=== PATIENT | male | born 1990 | race Caucasian/White ===

== ENCOUNTER 2022-11-22 08:48 | Day surgery (SDC) | payer MEDICAID, SELFPAY ==
[2022-11-22] VITALS (13 sets, daily range): BP systolic 127–142; BP diastolic 66–93; PULSE 84–118; RESP 15–20; TEMP 36.6–37.2; O2SAT 95–100; BMI 19.4
[2022-11-22] MEDS: LACTATED RINGERS 1000 ML 1,000 ML 100 ML IV (09:25)
[2022-11-22] MEDS: SODIUM CHLORIDE 0.9 % (FLUSH) 10 ML SYRINGE IVF (09:25)
[2022-11-22 09:32] LABS: SARS Antigen* negative (Negative)
--- NOTE | 2022-11-22 09:51 | PM.GSCN ---
History of Present Illness Consult details Date Seen: 11/22/22 Consult date: 11/22/22 Narrative: 32-year-old male was referred to surgery by Dr. Sepulveda for evaluation of acute appendicitis. Patient states that last Friday or Friday he developed periumbilical pain that later became suprapubic. Patient had intermittent episodes of this pain and on Friday the pain came back and was constant. The pain was suprapubic and was described as ?like I needed to have a bowel movement?. The pain was better with resting and sometimes better with walking around. Patient was passing gas. His last bowel movement was 2 days ago. He denies any nausea or vomiting. He denies any fevers. Patient had episodes of pubic pain for years. He usually describes the pain as dull and located at the base of the penis. Patient was diagnosed with pelvic floor dysfunction but thinks that this pain is different from his previous painful episodes. Patient was seen in [facility] and was found to have a normal WBC and normal liver function tests. Those were personally reviewed by me at [facility]. Patient also had an abdominal CT that I reviewed in [facility] and that showed dilated appendix with appendicoliths with no significant periappendiceal inflammation. This was concerning for an early appendicitis. Patient was placed on antibiotics and a GI follow-up was recommended. Patient was then seen by Dr. Sepulveda from Gastroenterology yesterday. Patient's pain was getting better with antibiotics. Dr. Sepulveda then consulted surgery for evaluation for appendectomy. Review of Systems Narrative: General: no fevers HENT: no problems swallowing CV: no shortness of breath Resp: no cough GI: see above Skin: no new rashes Musculoskeletal: no back pain Neuro: no muscle weakness PFSH PFS Medical History (Updated 11/22/22 @ 09:57 by Cony Mukherjee MD) Chronic appendicitis Social History (Updated 11/22/22 @ 09:57 by Cony Mukherjee MD) Narrative: Patient denies smoking and drinking alcohol. He works at [employer] and occasionally does heavy lifting. Smoking Status: Never smoker How often do you have a drink containing alcohol: never AUDIT-C Alcohol total score: 0 Non-prescribed substance use: denies use Caffeine: No Meds Home Medications and Allergies Home Medications Medication Instructions Recorded Confirmed Type amoxicillin 875 mg-potassium 1 tab PO BID 11/21/22 11/22/22 History clavulanate 125 mg tablet Allergies Allergy/AdvReac Type Severity Reaction Status Date / Time ibuprofen AdvReac Edema Verified 11/22/22 09:26 Exam Narrative: Exam Narrative: General appearance: Alert, cooperative, and in no distress Pulmonary: Chest symmetric, lungs clear bilaterally Cardiovascular Heart: Regular rate and rhythm, S1, S2, no murmurs/rubs/gallops Gastrointestinal Abdominal: soft, not distended, minimal tenderness to deep palpation suprapubically with no peritoneal signs Skin: Normal skin color, texture, and turgor. No rashes or lesions. Psychiatric: Alert, cooperative, normal affect. Const: Vital Signs, click to edit/add: Vital Signs - 24 hr 11/22/22 09:30 Temperature 97.9 F Pulse Rate 118 H Respiratory Rate 16 Blood Pressure 142/89 H Pulse Oximetry 98 Oxygen Delivery Me thod Room Air Results Labs Labs: All other labs normal. Assessment and Plan Assessment and plan (1) Chronic appendicitis: Status: Acute Plan 32-year-old male presents with abdominal pain and dilated appendix concerning for acute on chronic appendicitis. I discussed with the patient and his mother his laboratory and CT findings. Patient's symptoms are atypical for acute appendicitis. However his CT scan shows dilated appendix with appendicoliths, and I wonder if his intermittent episodes of pain could be related to chronic appendicitis. I also discussed with the patient and his mother that there is a possibility that he has Meckel's diverticulum that is causing his symptoms. I recommended to proceed with laparoscopic appendectomy. We also discussed the exploration of the terminal ileum looking for Meckel's diverticulum. If patient does have inflamed Meckel diverticulitis, I recommended to proceed with excision that could possibly contain primary anastomosis. I did discuss with the patient that if his surgery is more involved, he will need to stay in the hospital for few days. The risks of procedure including infection, bleeding, injury to intra-abdominal organs, and continued chronic pain were all discussed with the patient and his mother, and the patient agreed to proceed.
--- NOTE | 2022-11-22 11:01 | P.NB_ITS ---
Nerve Block Nerve Block Time Seen by Provider: 10:40 Date Seen: 11/22/22 Type of block requested by surgeon for post-operative analgesia: TAP Side: bilateral Time out performed: Yes Verification of patient name: Yes Verification of date of : Yes Site marking: site marked Name of person performing procedure: Elia Hernandez Continuous monitoring Was continuous monitoring of O2 sat, B/P, vehicle monitor technician, recorded every 15 minutes?: Yes Procedure Checklist: sterile prep, needles and gloves Ultrasound guided. Images saved: Yes Medications given in 5ml increments after negative aspiration: Marcaine %: 0.25 mL: 30 Needle gauge: 20 and Exparel mL: 10 Needle gauge: 20 Patient tolerated procedure well: Yes Additional comments: Injected in 5ml increments after negative aspiration Block Charges Block Charge (with Pro Fee): TAP Bilateral Use of Ultrasound Machine for Block: Yes- US Guidance/pain block
[2022-11-22] MEDS: BUPIVACAINE 0.25% 30 ML INJECTION (12:07)
--- NOTE | 2022-11-22 12:27 | W.ANESCHARGE ---
Anesthesia Charges Start Date/Time Anesthesia Start Date: 11/22/22 Anesthesia Start Time: 10:34 Stop Date/Time Anesthesia Stop Date: 11/22/22 Anesthesia Stop Time: 12:27
[2022-11-22] MEDS: fentaNYL 100 MCG/2 ML inj 50 MCG IVP ×2 (12:33→12:47)
--- NOTE | 2022-11-22 12:58 | P.GSOP_ITS ---
Operative Note Date of procedure: 11/22/22 Pre-op diagnosis: 1. Acute on chronic appendicitis. Post-op diagnosis: Same Type of Procedure: 1. Laparoscopic appendectomy. Indications: 32-year-old male was referred to surgery clinic with intermittent episodes of abdominal pain. The last episode started several days ago and was initially intermittent but then the pain became constant. The pain was periumbilical and then located in the suprapubic area. Patient denies any fevers. He was passing gas and had bowel movements. Because the pain was persistent, patient was seen in his clinic. He was found to have a normal WBC. An abdominal CT was obtained that showed a dilated appendix with appendicoliths with no significant periappendiceal inflammation. This was suspicious for early appendicitis. Patient was recommended to take p.o. antibiotics and was referred to Gastroenterology. When seen in clinic by Gastroenterology, surgery was then involved. On clinical exam patient had minimal discomfort to palpation suprapubically with no peritoneal signs. Given patient's clinical history and his CT findings, acute on chronic appendicitis was suspected. I recommended to proceed with laparoscopic appendectomy. The procedure was discussed in detail. The risks associated procedure including infection, bleeding, and injury to intra-abdominal organs, were all discussed with the patient, and he agreed to proceed. Procedure Description: After discussing the risks and benefits of the procedure, the patient signed informed consent.? The operative site was marked and the patient was brought to the operating room and placed on the operating table in supine position.? Care was taken to pad the patient's pressure points.?? The patient was then intubated by anesthesia. Transabdominal block was administered by Anesthesia bilaterally.?? The operative site was then prepped and draped in the usual sterile fashion.? A time-out was then performed. A 5-mm laparoscopy port was placed in the left upper quadrant guided by a 5-mm laparoscope placed into a translucent trochar. Passage through the layers of th e abdominal wall was visualized with the laparoscope. A pneumoperitoneum was established. A 30-degree 5-mm laparoscope was advanced into the abdomen. The abdomen was briefly surveyed, and there was no evidence of diffuse peritonitis. A 12-mm port and a 5-mm port were placed in the left low quadrant and suprapubically, respectively, under direct visualization by laparoscope. Left upper quadrant entrance port was then examined intraabdominally by placing the camera through the left lower quadrant port and no intraabdominal injury was seen. The patient was placed in Trendelenburg position, allowing the abdominal contents to shift cephalad. The small bowel was moved toward the midline in the abdomen and this allowed for identification of the appendix. The proximal half of the appendix appeared hyperemic but there was no evidence of acute inflammation. The distal half of the appendix appeared slightly dilated. Initially, It was difficult to tell where the base of the appendix was and where the appendiceal mesentery was. The proximal half of the appendix appeared to be wrapped in peritoneum and adherent to the pelvic sidewall. I then proceeded with dissecting the appendix from the abdominal wall and from the cecum. The cecum was redundant and also covered by redundant peritoneum. This dissection was done with Harmonic scalpel and bluntly. Multiple small blood vessels were noted to go into the appendix posteriorly adjacent to the cecal mesentery. Those small blood vessels were skeletonized and clipped with 5 mm clips and then divided with scissors. The peritoneum overlying the proximal half of the appendix was thickened and difficult to mobilize. The terminal ileum going into the cecum was visualized and frequent checks were done to avoid injury to the small intestine. Because the anatomy was atypical, I elected to look for a right ureter, which was identified deep in the retroperitoneum diving into the pelvis. Our dissection was away from the ureter. Just grasping the appendix was tearing into the appendiceal wall and the appendix was fracturing. There was no purulence or stool contents spilling from the appendix. When the appendiceal base was identified and skeletonized, a vascular load Endo-RUBEN stapler was advanced through the 12-mm port into the abdomen and appendix was stapled off at its base. The appendix was then placed in an endoscopic r etrieval bag and extracted from the abdomen through the 12-mm port. The abdomen was surveyed for hemostasis. Mild bleeding was noted from the staple line and that was controlled with a single 5 mm clip. I then ran the terminal ileum laparoscopic and no Meckel's diverticulum was identified. There was no evidence of creeping fat in the terminal ileum. The 12-mm port was withdrawn and the fascial defect was closed with 0-0 Vicryl stitch. This closure site was examined from the abdomen, and no intra-abdominal structures were incarcerated in the closure. The 5-mm port was removed under direct visualization. The left upper quadrant port was used to evacuate the pneumoperitoneum and then withdrawn. The skin incisions were closed with 4-0 monocryl. Steri-Strips were applied over the incisions. All counts were correct at the end of the case. The patient tolerated this procedure well and was transferred to PACU in stable condition. Findings: Chronic appendiceal inflammation. No purulence noted. Anesthesia: GETA Surgeon: Cony Mukherjee MD Estimated blood loss (mL): 5 Specimen: Appendix Condition: stable Disposition: PACU
--- NOTE | 2022-11-22 13:03 | SUR.PHASEI ---
patient met discharge criteria per anesthesia
[2022-11-22] MEDS: HYDROCODONE-ACETAMIN 5-325 MG 1 TAB PO (13:15)
== END 2022-11-22 14:02 | disposition home or self-care (01) ==
PROVIDERS: Nurse Anesthetist, Certified Registered; Visit Provider Surgery
PROC: 0DTJ4ZZ Resection of Appendix, Percutaneous Endoscopic Approach (ICD-10-PCS; CPT 44970; principal; 2022-11-22 11:00)
DX: K35.80 Unspecified acute appendicitis (principal)
CPT/HCPCS: 44970; 00840; 64488; 76942; 87426; 88304; A9270; C9290; J0330; J1100; J2405; J2704; J3010; J3490; J7120